=== PATIENT | female | born 1975 | race Caucasian/White ===

== ENCOUNTER → 2018-01-30 | Outpatient (CLI) | payer OTHER | LOC: CIMAGING 08:21 | PROVIDERS: ATTEND Obstetrics & Gynecology | DX: Z12.31 Encounter for screening mammogram for malignant neoplasm of breast (principal) ==

== ENCOUNTER 2018-03-28 07:33 | Observation (INO) | payer OTHER ==
--- NOTE | 2018-03-27 20:44 | GHP ---
DATE OF ADMISSION: 03/28/2018 Patient is slated for surgery on 03/28/2018 on the gynecology service. PREOPERATIVE HISTORY: Patient is a 42-year-old, G0, white female with regular monthly cycles, who has been noted recently to have enlarged uterine fibroid and has also been bothered by increasing pelvic pressure. The patient has a history of significant dysmenorrhea; however, that has recently lessened. The patient has a long-term issue with uterine fibroids and had an open myomectomy with Dr. Acosta in 2009 to remove several fibroids, the largest of which was 8 cm. This was in attempts to conceive with IVF. The patient had many ultrasounds, and the residual fibroids were very small. Recently, on annual exam, the patient was felt to have increased bulk to her uterus and an ultrasound was performed. This reveals the uterus is 9 x 7 x 10 cm with an endometrial thickness of 5 mm. There are several fibroids, 1 posteriorly inferior on the uterus that is 7 x 7 cm, and another 5 x 7 cm posterior superior fibroid. There is an approximately 3 cm anterior subserosal fibroid. The ovaries appear normal. With the regrowth of significant fibroids, the patient wants to proceed with definitive management with a total hysterectomy and also removal of her tubes. The patient is counseled that there is possibility of being able to remove laparoscopically and the patient desires to give this a try. The patient has been thoroughly counseled about the risks of surgery and the potential need to open to a laparotomy. The patient is aware morcellation might be required vaginally to get the fibroids out. The patient did sign the consent form for total laparoscopic hysterectomy and bilateral salpingectomy. The patient is desiring to keep her ovaries. The patient was advised again to consider genetic testing, as she has family risk for genetic abnormality. The patient is going to ask her mom to do testing, but the patient does not want to proceed with removal now and understands the options of ultrasound surveillance of the ovaries. PAST MEDICAL HISTORY: Infertility with multiple IVF attempts and uterine myomectomy to facilitate fertility. 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 Fibroids also cause severe dysmenorrhea and heavy menstrual cycles. PAST SURGICAL HISTORY: In childhood, a tonsillectomy in 2009; an open myomectomy with Dr. Acosta. PAST OBSTETRIC HISTORY: Patient never able to conceive. ALLERGIES: Erythromycin. CURRENT MEDICATIONS: Multivitamins, probiotics, omega-3. SOCIAL HISTORY: The patient is a nonsmoker. Social alcohol use and no illicit drug use. The patient is and lives with her , Yifan, and their 2 adopted children. Currently, her is in [place] with work, as they are moving there for the next 3 years. The patient's mom is here to help with recovery. FAMILY HISTORY: Maternal grandmother with ovarian cancer at the age of 62. Maternal aunt with pancreatic cancer at the age of 60. 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 Normal Pap smear. History of normal mammogram in January of 2018. PHYSICAL EXAM: GENERAL: The patient is a well-developed, well-nourished white female in no physical distress. VITAL SIGNS: Patient is clinically afebrile. Blood pressure 108/60, weight 198 pounds, height 66 inches. LUNGS: Clear to auscultation bilaterally. CARDIOVASCULAR: Regular rate and rhythm. HEENT: Shows no thyromegaly, no adenopathy, and the oropharynx is clear. ABDOMEN: Soft and nontender. No distention and no palpable masses abdominally. PELVIC: Reveals normal-appearing cervix, and Pap and HPV are performed and are both negative. The uterus feels enlarged with prominent posterior fibroid palpable. Ovaries could not be palpated. EXTREMITIES: Nontender. No edema noted. Normal DTRs. ASSESSMENT: Large uterine fibroid, pelvic pressure. PLAN: We will proceed with total laparoscopic hysterectomy and bilateral salpingectomies. Potentially, the fibroids will need to be morcellated out vaginally. /[id number]/MODL MTDD
[2018-03-28] MEDS ORDERED: ceFAZolin 2 GM/DEXTROSE 100 ML IV ONE (07:46)
[2018-03-28] MEDS ORDERED: LR 1,000 ML IV ONE (07:47)
[2018-03-28] MEDS ORDERED: BUPIVACAINE 0.5% 30 ML SDV ONE (08:18)
[2018-03-28] MEDS ORDERED: METHYLENE BLUE 0.5% 50 MG/10 ML AMP ONE (08:18)
[2018-03-28 08:27] LABS: PLATELET COUNT 259 10^3/uL (150-400)
[2018-03-28] MEDS ORDERED: MIDAZOLAM 2 MG/2 ML VIAL IVP ONE (09:47)
--- NOTE | 2018-03-28 09:47 | PDANEPAE ---
ANE History of Present Illness dysmenorrhea, here for laparoscopic hys and salpingectomy ANE Past Medical History - Cardiovascular History Hx Hypertension: No Hx Arrhythmias: No Hx Chest Pain: No Hx Coronary Artery / Peripheral Vascular Disease: No Hx CHF / Valvular Disease: No Hx Palpitations: No - Pulmonary History Hx COPD: No Hx Asthma/Reactive Airway Disease: Yes Hx Recent Upper Respiratory Infection: No Hx Oxygen in Use at Home: No Hx Sleep Apnea: No Sleep Apnea Screening Result - Last Documented: Negative Pulmonary History Comment: CHILDHOOD ASTHMA - Neurologic History Hx Cerebrovascular Accident: No Hx Seizures: No Hx Dementia: No - Endocrine History Hx Diabetes: No - Renal History Hx Renal Disorders: No - Liver History Hx Hepatic Disorders: No - Neurological & Psychiatric Hx Hx Neurological and Psychiatric Disorders: No - Cancer History Hx Cancer: No - Congenital Disorder History Hx Congenital Disorders: No - GI History Hx Gastrointestinal Disorders: No - Other Health History Other Health History: UTERINE FIBROIDS. HEAVY MENSES - Chronic Pain History Chronic Pain: Yes (LOWER BACK) - Surgical History Prior Surgeries: REMVL UTERINE FIBROIDS 2010. TONSILLECTOMY ANE Review of Systems Review of Systems: - Exercise capacity METS (RN): 6 METS ANE Patient History - Allergies Allergies/Adverse Reactions: erythromycin base [Erythromycin Base] Allergy (Verified 08/12/10 09:17) nausea gluten Allergy (Verified 03/27/18 14:39) Rash - Home Medications Home Medications: Herbals/Supplements -Info Only 1 ea PO DAILY 03/16/18 [Last Taken Unknown] - NPO status NPO Since - Liquids (Date): 03/28/18 NPO Since - Liquids (Time): 05:55 NPO Since - Solids (Date): 03/27/18 NPO Since - Solids (Time): 18:30 - Smoking Hx Smoking Status: Never smoked ANE Labs/Vital Signs - Labs Result Diagrams: 03/28/18 08:12 - Vital Signs Blood Pressure: 109/69 Heart Rate: 69 Respiratory Rate: 12 O2 Sat (%): 96 Height: 168.91 cm Weight: 77.111 kg ANE Physical Exam - Airway Neck exam: FROM Mallampati Score: Class 1 Mouth exam: normal dental/mouth exam - Pulmonary Pulmonary: no respiratory distress, no rales or rhonchi - Cardiovascular Cardiovascular: regular rate and rhythym, no murmur, rub, or gallop - ASA Status ASA Status: II ANE Anesthesia Plan Anesthesia Plan: general endotracheal anesthesia Total IV Anesthesia: No
[2018-03-28] MEDS ORDERED: PROPOFOL 200 MG/20 ML VIAL ONE (10:03)
[2018-03-28] MEDS ORDERED: ROCURONIUM 50 MG/5 ML VIAL ONE (10:03)
[2018-03-28] MEDS ORDERED: fentaNYL 100 MCG/2 ML INJ ONE ×3 (10:03→12:43)
[2018-03-28] MEDS ORDERED: LIDOCAINE 2% 100 MG/5 ML SYR ONE (10:03)
[2018-03-28] MEDS ORDERED: HYDROmorphONE/DILAUDID 2 MG/ML INJ ONE (11:09)
[2018-03-28] MEDS ORDERED: ONDANSETRON 4 MG/2 ML VIAL IVP PRN ×2 (14:27→14:28)
[2018-03-28] MEDS ORDERED: ACETAMINOPHEN 500 MG TAB PO PRN (14:28)
[2018-03-28] MEDS ORDERED: ALBUTEROL 3 ML DEYVIAL IH PRN (14:28)
[2018-03-28] MEDS ORDERED: PROMETHAZINE HCL 25 MG/ML INJ IVP PRN (14:28)
[2018-03-28] MEDS ORDERED: oxyCODONE IR 5 MG TAB PO PRN ×2 (14:28→14:34)
[2018-03-28] MEDS ORDERED: NALOXONE HCL 0.4 MG/ML INJ IVP PRN (14:28)
[2018-03-28] MEDS ORDERED: MEPERIDINE 25 MG/0.5 ML AMP IVP PRN (14:28)
[2018-03-28] MEDS ORDERED: fentaNYL 100 MCG/2 ML INJ IVP PRN (14:28)
[2018-03-28] MEDS ORDERED: DIAZEPAM 5 MG/ML 1 ML SYR IVP PRN (14:28)
[2018-03-28] MEDS ORDERED: HYDROmorphONE/DILAUDID 2 MG/ML INJ IVP PRN (14:28)
--- NOTE | 2018-03-28 14:29 | POSTANESTH ---
Post Anesthetic Evaluation Cardiovascular Status: Normal, Stable Respiratory Status: Normal, Stable Level of Consciousness/Mental Status: Can Participate in Eval, Mildly Sleepy, Arousable Pain Control: Adequate, Prn Tx Ordered Nausea/Vomiting Control: Adequate, Prn Tx Ordered Complications Possibly Related to Anesthesia: None Noted
[2018-03-28] MEDS ORDERED: LR 1,000 ML IV SCH (14:30)
--- NOTE | 2018-03-28 14:48 | POSTOPPROG ---
Post Op Note Date of Operation: 03/28/18 Surgeon: Jennifer Ramirez Jacquard Card Lacer: Austen Grady MD Anesthesiologist: Verena Abel MD Anesthesia: GET(General Endotracheal) Pre-op Diagnosis: uterine fibroids, pelvic pressure, dysmenorrhea Post-op Diagnosis: same Indication: large fibroids noted on u/s, h/o myomectomy, pelvic pressure worsening Procedure: TLH, BS, adhesiolysis, cystoscopy Findings: very lg post fib filling pelvis, trachel done to allow colpotomy, nl ureter Inf/Abcess present in the surg proc area at time of surgery?: No Depth: Organ Space EBL: 100-500 (150) Total fluids administered: 2100 Complications: adhesions of omentum in long band in midline and to left - needed separation to allow visualization. bowel adhesion to left broad lig fundal area. cystotomy showed normal ostea and flow bilat. nl appen and liver edge. very distorted uterus with huge post fibroid. able to make colpotomy after trachelectomy Specimen(s): uterus, tubes bilat, vaginal morcellated fibroid pieces
[2018-03-28] MEDS: ACETAMINOPHEN 325 MG TAB PO SCH (17:19)
[2018-03-28] MEDS ORDERED: DIAZEPAM 2 MG TAB PO PRN (17:38)
--- NOTE | 2018-03-28 18:12 | SOAPPROG ---
SOAP Progress Note Assessment/Plan: Assessment: s/p TLH,BS,adhesiolysis, cysto Plan: routine care, will stay tonight and d/c in am 03/28/18 18:08 Subjective: Pt just had n/v after amb to bathroom. Was able to urinate fine. had really pushed a lot of fluids right before. Has had pain up to 5/10 and using oxy and tylenol. Will have toradol at 8pm. wants to stay tonight. Objective: Vital Signs Temp Pulse Resp BP Pulse Ox 37.1 C 89 20 105/67 94 03/28/18 17:00 03/28/18 17:00 03/28/18 17:00 03/28/18 17:00 03/28/18 17:10 Laboratory Results 03/28/18 08:12 03/27/18 03/28/18 03/29/18 05:59 05:59 05:59 Intake Total 2600 Output Total 650 Balance 1950 - Pending Discharge Pending Discharge Within 24 Hours: Yes Pending Discharge Date: 03/29/18 Pending Discharge Time: 11:00 Physical Exam - Physical Exam General Appearance: WD/WN, alert Abdomen: non-tender (approp post op tenderness), soft, other (3 bandaide sites all look good, CDI) Skin: normal color, warm/dry Extremities: non-tender, pedal edema (mild) Neuro/Psych: alert (but drowsy), normal mood/affect ICD10 Worksheet Patient Problems: Problems Problem Status Onset S/P laparoscopic hysterectomy Acute Status post bilateral salpingectomy Acute
[2018-03-28] MEDS: ceFAZolin 2 GM/DEXTROSE 100 ML IV SCH (18:45)
[2018-03-28] MEDS: KETOROLAC 30 MG/1 ML SDV IVP SCH (20:07)
[2018-03-29] MEDS: ACETAMINOPHEN 325 MG TAB PO SCH ×3 (00:20→09:23)
[2018-03-29] MEDS: KETOROLAC 30 MG/1 ML SDV IVP SCH ×2 (02:45→09:23)
[2018-03-29] MEDS: ceFAZolin 2 GM/DEXTROSE 100 ML IV SCH (02:46)
[2018-03-29 06:14] LABS: PLATELET COUNT 229 10^3/uL (150-400)
--- NOTE | 2018-03-29 08:48 | SOAPPROG ---
SOAP Progress Note Assessment/Plan: Assessment: s/p TLH,BS,adhesiolysis, cysto, POD 1 Plan: routine care, D/C home 03/28/18 18:08 03/29/18 09:09 Subjective: Pt doing much better. No further n/v. maikol reg diet. only used tyl/toradol last noc. amb well. urinating fine. ready for d/c. only wants a few oxy, doubts she'll need any. will write for 4 pills Objective: Vital Signs Temp Pulse Resp BP Pulse Ox 37.2 C 77 14 96/59 L 97 03/29/18 05:40 03/29/18 05:40 03/29/18 05:40 03/29/18 05:40 03/29/18 05:40 Laboratory Results 03/29/18 05:49 03/28/18 03/29/18 03/30/18 05:59 05:59 05:59 Intake Total 2600 Output Total 2125 Balance 475 Physical Exam - Physical Exam General Appearance: WD/WN Abdomen: non-tender, soft, other (bandaides CDI x3) Pelvic Exam: deferred Skin: normal color, warm/dry Extremities: non-tender, pedal edema (none) Neuro/Psych: alert, normal mood/affect ICD10 Worksheet Patient Problems: Problems Problem Status Onset S/P laparoscopic hysterectomy Acute Status post bilateral salpingectomy Acute
[2018-03-29] MEDS ORDERED: ENOXAPARIN 30 MG/0.3 ML SYR SC SCH (09:00)
[2018-03-29 09:35] VITALS: BP 105/62
--- NOTE | 2018-03-29 10:10 | GDS ---
DISCHARGE CONDITION: Improved. PROGNOSIS: Excellent. DISCHARGE DIAGNOSIS: Uterine fibroids and pelvic pressure, status post total laparoscopic hysterecto my, bilateral salpingectomy, adhesiolysis, cystoscopy. ADMISSION SUMMARY: Patient is a 42-year-old G0 white female who has had a known history of fibroids requiring surgery years ago with KATIA to optimize fertility. However, has had increasing pelvic press ure recently and ultrasound again reveals multiple fibroids. Patient wants definitive management wit h hysterectomy and is advised also to have tubes removed. The patient was planning for laparoscopic hysterectomy. HOSPITAL COURSE: The patient was admitted and underwent the above-named procedure. The procedure wa s slightly longer than typical due to adhesions of the omentum to the anterior abdominal wall as well as bowel adhesions to the uterus. These required time to take down carefully. The uterus also was a bulk that required some morcellation vaginally and then the uterus was able to be removed mostly in tact through the vaginal opening. Surgery was essentially uncomplicated other than those issues. Th e patient did well in the hospital stay other than nausea and vomiting a couple hours after surgery. The patient had 2 episodes of vomiting and received Zofran. She had 1 pain pill after surgery. How ever, otherwise was only taking Tylenol and IV Toradol. On the morning of discharge, the patient was feeling much better and tolerating a regular diet. The patient's vital signs had remained stable th roughout the hospital stay and she was afebrile. The patient was ambulating without problems and uri nating well. Only scant vaginal bleeding, which appeared old in color. The patient's pain was manag ed well. The patient had a CBC done the morning after surgery and hematocrit had dropped from 41 sherif n to 35%. The patient was discharged home to continue regular ibuprofen and Tylenol and to use Oxyco done IR as needed for pain. The patient did not feel she would need many if any narcotics. The pres cription was only written for 4 Oxycodone 5 mg, but the patient will watch and see if she is running out before the weekend to get another small prescription. Discharged home on 03/29 to follow up in 2 weeks in the office. /[id number]/MODL
--- NOTE | 2018-04-13 09:00 | GOP ---
[f rep st] OPERATIVE REPORT DATE OF OPERATION: 03/28/2018 SURGEON: Jennifer Ramirez MD HOUSEKEEPING MANAGER: Austen Grady MD. ANESTHESIA: General endotracheal anesthesia. ANESTHESIOLOGIST: Verena Abel. PREOPERATIVE DIAGNOSIS: Uterine fibroids, pelvic pressure, dysmenorrhea. POSTOPERATIVE DIAGNOSIS: Uterine fibroids, pelvic pressure, dysmenorrhea. PROCEDURE PERFORMED: Total laparoscopic hysterectomy, bilateral salpingectomy, adhesiolysis, cystoscopy. FINDINGS: INDICATIONS: The patient is a 42-year-old, G0 white female who has a known history of fibroids and has been having worsening dysmenorrhea and increasing pelvic pressure. The patient had an open myomectomy in 2009 with removal of several fibroids, the largest of which was 8 cm. The patient had ultrasound since then and the fibroids were very small. The recent ultrasound now revealed the uterus 9 x 7 x 10 cm with several fibroids, the largest on the posterior inferior head of the uterus at 7 x 7 cm and posterior superior 5 x 7 cm. There is another 3 cm anterior fibroid. The patient wanted to proceed with definitive management with a hysterectomy at this point and is hopeful for a laparoscopic approach. The patient wants her tubes removed, but desires to retain her ovaries. Risks and benefits of the surgery were discussed and the possibility of needing to have an open completion of surgery. The patient has signed the consent form. DESCRIPTION OF PROCEDURE: Patient was taken to the operating room where she received a preoperative dose of antibiotics and had SCDs on her lower extremities for DVT prophylaxis. The patient had general endotracheal anesthesia and after this was placed in dorsal lithotomy position appropriate for laparoscopy. The patient's perineum, vagina and abdomen were prepped and the patient draped in the usual sterile manner. The surgery was initiated vaginally. The TONI uterine manipulator was attached to the uterus. The 10 cm tip was used and was filled with saline and a medium-sized cup was placed around the cervix. This provided manipulation of the uterus. After this was placed, the surgery was begun abdominally. A small infraumbilical incision was made after Marcaine was injected. Upward traction on the abdominal wall was performed and the Veress needle was introduced. CO2 was used to insufflate the abdomen and then the laparoscopic camera was used to introduce the 5 mm trocar. It became immediately evident that the adhesions of the omentum anteriorly prevented easy visualization into the pelvis. The right lower quadrant port was introduced under direct visualization. This was a 5 mm trocar. Left lower quadrant 10 mm port was introduced as the midline camera could be deviated around the adhesions to the left. This was introduced without incident under direct visualization. This was near the dominant midline omental adhesion. Visualization was performed by using the camera in all three ports to inspect the adhesions. It did appear that these were omental adhesions up to the serosa on the anterior abdominal wall. A long band of adhesions went from right of midline down to the left upper pelvic area. It was evident that the omental adhesion would need to be taken down before any progress could be made on the planned surgery. Under direct visualization with the LigaSure was used to separate off the omentum. This adhesiolysis added approximately an hour to the surgical time. Careful inspection was performed throughout to ensure that there was no loops of bowel stuck up into the adhesion. At one point it was evident that the peritoneal surface had been opened and it was clear where the omentum needed to be off the serosal edge. There was a serosal defect that was in the left upper pelvis region to the midline. Dr. Hirsch of General Surgery was asked to inspect and assess that there was no interruption of the fascia or evidence of a hernia. He did not feel there were any worries of that and it appeared just to be a peritoneal defect. It was high up out of the area of concern for bladder involvement and then inspection of the pelvis could be better performed. The uterus was quite irregular with multiple evident fibroids. On the right side of the uterus tube was elevated at the fimbrial portion and the LigaSure was used to separate the tube along the mesosalpinx portion. It was fully transected and then was removed through the 10 mm port. Additional dissection was performed on the right, the round ligament and then entering into the broad ligament. The right ureter could be visualized. As the broad ligament was opened, dissection could further continue down along the lateral aspect of the uterus. It was a very large dominant posterior fibroid filling the pelvis. It was difficult to elevate to be able to identify the cervix. Attention was turned to the left aspect of the uterus. It was evident that there was bowel adherent to the left broad ligament area and lateral fundus area of the uterus. The bowel was gently grasped and then sharply there was dissection to separate off this bowel adhesion. Cautery was not performed as the bowel was very close to the dissection. The filmy serosal connection could be easily and the bowel pulled down off the uterus. This then allowed visualization of the left tube and ovary. The left tube could be grasped at the fimbriated end and elevated and the LigaSure was used to separate off the left tube along the mesosalpinx. This was up to the level of the isthmic portion and the tube was transected free and pulled out through the 10 mm port. The utero- ovarian pedicle was cauterized and the round ligament on the left was cauterized. The left ureter was difficult to visualize with the bowel adherent to that broad ligament sidewall. This upper posterior fibroid was bulging into the left adnexal area. Careful dissection was performed ensuring that the bowel was off the area. As the round ligament was transected then the anterior sheath of the serosa was entered. There was difficulty with dissection off the anterior portion. It was felt there was a large anterior fibroid interfering with being able to dissect past this area down to the cervix. The visceral peritoneum was opened and a flap was developed. It was felt that the anterior fibroid needed to be dissected through and potentially perform a myomectomy to be able to get down to the cervical area and then come back and dissect out this anterior fibroid later. The anterior flap was developed. It then became evident that going through what was felt was an intrauterine fibroid was essentially the upper cervical area. We essentially were the uterus from the cervix with cautery which became evident when we noted the inner uterine tip on the TONI manipulator. As this now helped us identify the anatomy , it became clear that the area we felt was the anterior fibroid that was actually the cervix up anteriorly with the TONI cup around it. In off the uterus, this allowed us to be able to visualize the cervix and be able to have access to make the colpotomy. Further dissection on the lateral area allowed us to isolate and cauterize with the LigaSure and separate the uterine vessels. These were isolated on both sides. Significant posterior bulk of the uterus was manipulated around to fully be able to complete the colpotomy. This likely was not going to be able to be performed unless we had the uterus off to be able to allow visualization. There was a very small connection in the posterior aspect of the cervix still attached to the uterine base. It was felt the bladder was pushed down well off the anterior cervix. After the full colpotomy was completed, then the cervix was able to be removed through the vaginal area pulling out the TONI retractor. Dr. Grady went down vaginally while visualization was still maintained laparoscopically. He was able to bring out the TONI manipulator and then be able to grasp the inferior portion of the uterus. It was obvious that morcellation needed to be performed for removal of the uterus. A very small amount of morcellation on that posterior fibroid was needed and then the uterus was able to be removed vaginally. Inspection was performed and then the cuff area was not felt to be extended. The vaginal cuff was closed with a running V-Loc suture of 0 Vicryl with the Endostitch. There was good closure of the vaginal cuff. The lateral angles of the cuff were directly sewn to the uterosacral ligament in a modified Quinonez type stitch. The cuff was closed with the sutures without problems. Following this, further inspection was performed to ensure hemostasis due to the extensive adhesiolysis. The appendix was visualized and it was normal as well as the liver and gallbladder. The dissection in the pelvis was hemostatic at the utero-ovarian, uterine and round ligament vessels. The area of dissection of the omentum was also hemostatic. A cystotomy was performed which revealed normal ureteral orifices x2 and good flow bilaterally. Following this , the abdominal incisions were closed. The 10 mm trocar was removed and the fascial closure device was then used with 0-Vicryl to close the fascia. Following this, the right lower quadrant 5 mm port was removed and was hemostatic. The laparoscopic cannula was removed and CO2 allowed to escape from the abdomen. Following this, all 3 of the incisions were closed with 0 Monocryl in subcuticular stitch. Mastisol and Steri-Strips were used on each incision and Band-Aids applied. The Puente catheter was left out of the bladder after the cystoscopy. The estimated blood loss for surgery is 150 cc. Total IV fluids administered were 2100 cc. The complications were the omental adhesions anteriorly and the bowel adhesions to the left broad ligament and fundus. This added time to the surgery which was approximately 3 hours and 40 minutes. The patient was taken out of position and cleaned off. She was awoken and taken to the recovery room in stable condition. /[id number]/MODL MTDD
== END 2018-03-29 12:15 | disposition home or self-care (01) ==
LOC: F3N 07:33 → F3E 07:47 → FOB 17:14
PROVIDERS: ADMIT Obstetrics & Gynecology; ATTEND Obstetrics & Gynecology
DX: D25.9 Leiomyoma of uterus, unspecified (principal); N73.6 Female pelvic peritoneal adhesions (postinfective); N94.6 Dysmenorrhea, unspecified
CPT/HCPCS: 58573; G0378; J0690; J1170; J1650; J1885; J2001; J2250; J2405; J2704; J3010; Q9968